=== PATIENT | male | born 1960 | race Caucasian/White ===

== ENCOUNTER 2023-05-16 09:07 | Day surgery (SDC) | payer OTHER ==
[~2023-05-16] VITALS: Ht 165.1 cm; Wt 108.4 kg
[2023-05-16] MEDS ORDERED: MIDAZOLAM 5 MG/5 ML VIAL ONE (10:03)
[2023-05-16] MEDS ORDERED: fentaNYL citrate 0.05 MG/ML VIAL ONE (10:03)
== END 2023-05-16 12:15 | disposition home or self-care (01) ==
LOC: MOR 09:07 → MMU 09:08 → MOR 12:15
PROVIDERS: ATTEND Internal Medicine Gastroenterology
DX: Z12.11 Encounter for screening for malignant neoplasm of colon (principal); K63.5 Polyp of colon; K57.30 Diverticulosis of large intestine without perforation or abscess without bleeding; K29.70 Gastritis, unspecified, without bleeding; K21.9 Gastro-esophageal reflux disease without esophagitis; E78.5 Hyperlipidemia, unspecified; F41.9 Anxiety disorder, unspecified; E66.9 Obesity, unspecified; Z68.39 Body mass index [BMI] 39.0-39.9, adult; M19.90 Unspecified osteoarthritis, unspecified site; Z79.899 Other long term (current) drug therapy
CPT/HCPCS: 36415; 43239; 45385; 86677; J2250; J3010